=== PATIENT | male | born 1965 | race Asian ===

== ENCOUNTER 2019-09-20 11:03 | Emergency (ER) | payer OTHER ==
[~2019-09-20] VITALS: Ht 167.6 cm; Wt 68.0 kg
[2019-09-20 11:35] VITALS: BP 141/96
--- NOTE | 2019-09-20 11:50 | NUR ---
ED Nurse Note: pt ambulated to ED d/t low back pain since wednesday; pt denies any trauma/injury; denies burning sensation upon urinating. vss on triage, pt's on RA, afebrile. Placed on bed. awaiting for ERMD.
[2019-09-20] MEDS ORDERED: IBUPROFEN600 M1 ORAL (11:57)
[2019-09-20] MEDS ORDERED: ROBAXIN-750750 MG PO (11:57)
--- NOTE | 2019-09-20 11:57 | Emergency Room Report ---
History of Present Illness General Chief Complaint: Back Pain-No Injury Source: Patient Present Illness HPI Patient presents with complaints of low back pain bilateral lower back region started yesterday patient reports that he had bent forward to pick something up and after standing up he felt some increased discomfort Denies any saddle paresthesia denies any Change with urination or bowel movements Denies any neuropathy denies any abdominal pain denies any upper back pain denies any focal weakness He has applied a waistband and feels that this is improving his symptoms somewhat Allergies: Coded Allergies: Dust (Verified Allergy, Unknown, 09/20/19) COVID-19 Screening Contact w/high risk pt: No Recent Travel to affected area: No Experienced COVID-19 symptoms?: No Patient History Past Medical History: see triage record Reviewed Nursing Documentation: PMH: Agreed; PSxH: Agreed Nursing Documentation-PMH Hx Asthma: Yes Review of Systems All Other Systems: negative except mentioned in HPI Physical Exam Vital Signs Date Time Temp Pulse Resp B/P (MAP) Pulse Ox O2 Delivery O2 Flow Rate FiO2 09/20/19 11:26 98.1 79 19 141/96 (111) 97 Room Air Sp02 EP Interpretation: reviewed, normal General Appearance: well appearing, no apparent distress Head: normocephalic, atraumatic Eyes: bilateral eye PERRL, bilateral eye EOMI ENT: hearing grossly normal, normal pharynx, TMs + canals normal, uvula midline Neck: full range of motion, supple, no meningismus, no bony tend Respiratory: lungs clear, normal breath sounds, no rhonchi, no respiratory distress, no retraction, no accessory muscle use Cardiovascular #1: normal peripheral pulses, regular rate, rhythm, no edema, no gallop, no JVD, no murmur Gastrointestinal: normal bowel sounds, non tender, soft, no mass, no organomegaly, non-distended, no guarding, no hernia, no pulsatile mass, no rebound Genitourinary: no CVA tenderness Musculoskeletal: other - Patient has some reproducible discomfort palpation paralumbar region L3-L4 no midline step-off sensory is intact Neurologic: motor strength/tone normal, repairer finished metal III-XII nml as tested, oriented x3 , sensory intact, responsive Psychiatric: mood/affect normal Skin: no rash Lymphatic: normal inspection, no adenopathy Medical Decision Making Diagnostic Impression: Primary Impression: Back pain Additional Impression: Back sprain ER Course Multiple differentials including but not limited to neurological neurosurgical, infectious and orthopedic differentials entertained patient appears otherwise comfortable I did not feel that acute imaging would provide much information he could potentially benefit from MRI if the discomfort persists at this time has a benign neurological exam onset of symptoms is over the past 1 day Patient will have initial conservative outpatient trial and return with any changes Last Vital Signs Date Time Temp Pulse Resp B/P (MAP) Pulse Ox O2 Delivery O2 Flow Rate FiO2 09/20/19 11:35 98.1 19 141/96 97 Room Air 09/20/19 11:26 79 Status: improved Disposition: HOME, SELF-CARE Condition: Stable Additional Instructions: Patient is provided with the discharge instructions notified to follow up with primary doctor in the next 2-3 days otherwise return to the er with any worsening symptoms. Please note that this report is being documented using [employer] technology. This can lead to erroneous entry secondary to incorrect interpretation by the dictating instrument. Sharlene Suarez DO September 20, 2019 11:57
[2019-09-20 12:20] VITALS: BP 138/92
--- NOTE | 2019-09-20 12:20 | NUR ---
ER DISCHARGE NOTE: Pt is cleared to be discharged per ERMD, pt is aox4, on room air, with stable vital signs. pt was given dc and prescription instructions, pt was able to verbalize understanding, pt id band removed. pt is able to ambulate with steady gait. pt took all belongings.
== END 2019-09-20 12:20 | disposition home or self-care (01) ==
LOC: EMR 12:20
DX: S33.5XXA Sprain of ligaments of lumbar spine, initial encounter (principal); M54.5 Low back pain; X50.1XXA Overexertion from prolonged static or awkward postures, initial encounter; Y92.9 Unspecified place or not applicable
CPT/HCPCS: 99282